=== PATIENT | male | born 1990 | race Caucasian/White ===

== ENCOUNTER 2022-06-23 04:47 | Observation (INO) ==
[2022-06-23] MEDS ORDERED: Melatonin 3 MG TABLET PO PRN ×2 (05:57→19:34)
[2022-06-23] MEDS ORDERED: Naloxone 0.4 MG/ML INJ IVP PRN ×2 (05:57→19:34)
[2022-06-23] MEDS ORDERED: Acetaminophen 325 MG TABLET PO PRN (06:00)
[2022-06-23] MEDS ORDERED: *HR* Dextrose 50 % in Water (Syg) 50 ML SYRINGE IVP PRN ×2 (06:13→19:34)
[2022-06-23] MEDS ORDERED: Dextrose Gel 15 GM/37.5 ML TUBE PO PRN ×4 (06:13→19:34)
[2022-06-23] MEDS ORDERED: D5% in Water 1,000 ML IVC PRN ×2 (06:13→19:34)
[2022-06-23] MEDS: Piperacillin/Tazobactam 3.375 GM in 0.9 % Sodium Chloride Mini Bag 100 ML IVPB SCH ×2 (07:55→15:47)
[2022-06-23 08:09] LABS: Basophils # 0.2 K/mcL (0.0-0.2); Eosinophils # 0.4 K/mcL (0.0-0.6); Eosinophils % 4.1 %; Hematocrit 44.5 % (37.5-50.1); Hemoglobin 15.6 g/dL (12.9-16.9); Immature Granulocytes % 0.2 % (0-4); Lymphocytes # 2.9 K/mcL (0.6-4.6); Lymphocytes % 34.2 %; Mean Corpuscular HGB Conc 35.1 g/dL (31.6-35.5); Mean Corpuscular Volume 88.5 fL (83.0-100.0); Mean Platelet Volume 9.6 fL (9.4-12.4); Monocytes # 0.6 K/mcL (0.0-1.3); Monocytes % 7.5 %; Neutrophils # 4.4 K/mcL (1.6-8.9); Platelet Count 211 K/mcL (140-400); Red Blood Count 5.03 M/mcL (4.19-5.50); Red Cell Distribution Width 13.1 % (11.5-14.5); White Blood Count 8.5 K/mcL (4.3-11.1)
[2022-06-23] MEDS ORDERED: Ibuprofen 400 MG TABLET PO PRN (08:15)
[2022-06-23 08:16] LABS: INR 1.1; Prothrombin Time 11.8 Seconds (9.4-12.1)
[2022-06-23 08:19] LABS: Activated Partial Thrombo Time 36.7 Seconds (26.0-36.0)
[2022-06-23 08:32] LABS: Alanine Aminotransferase 293 Units/L (7-52); Albumin 3.9 g/dL (3.5-5.7); Albumin/Globulin Ratio 1.9 (1.1-2.2); Alkaline Phosphatase 112 Units/L (34-104); Aspartate Amino Transferase 123 Units/L (13-39); BUN/Creatinine Ratio 13 (6-26); Bilirubin,Total 2.6 mg/dL (0.3-1.0); Blood Urea Nitrogen 11 mg/dL (6-20); Calcium 8.5 mg/dL (8.6-10.3); Carbon Dioxide 22 mEq/L (23-29); Chloride 109 mEq/L (98-107); Globulin 2.1 g/dL (2.4-3.5); Glucose 85 mg/dL (70-105); Osmolality,Calculated 287 (280-300); Potassium 3.8 mEq/L (3.5-5.1); Sodium 139 mEq/L (136-145)
[2022-06-23] MEDS: Ondansetron 4 MG/2 ML VIAL IVP PRN ×2 (08:36→19:22)
[2022-06-23] MEDS ORDERED: Nicotine 14 MG PATCH.TD24 TD SCH (09:00)
[2022-06-23] MEDS ORDERED: Lactobacillus 1 EACH CAP.SPRINK PO SCH (09:00)
[2022-06-23] MEDS ORDERED: Iopamidol - 300 50 ML VIAL ONE (10:51)
[2022-06-23] MEDS ORDERED: *HR* Rocuronium Bromide 50 MG/5 ML VIAL ONE ×2 (14:55→17:26)
[2022-06-23] MEDS ORDERED: Ondansetron 4 MG/2 ML VIAL ONE (14:55)
[2022-06-23] MEDS ORDERED: Lidocaine -MPF 2% 5 ML VIAL ONE (14:55)
[2022-06-23] MEDS ORDERED: Lidocaine HCL 4 ML Topical Solution (Laryng-O-Jet Kit Sterile Pak) TP ONE (14:55)
[2022-06-23] MEDS ORDERED: *HR* Propofol 200 MG/20 ML VIAL IVP ONE (14:55)
[2022-06-23] MEDS ORDERED: Sugammadex Sodium 200 MG/2 ML VIAL IV ONE (14:59)
[2022-06-23] MEDS ORDERED: *HR* HYDROcodone/Acet 5/325 mg TABLET PO PRN (15:15)
[2022-06-23] MEDS ORDERED: *HR* FentaNYL (PF) 100 MCG/2 ML VIAL ONE (15:49)
[2022-06-23] MEDS ORDERED: *HR* Midazolam HCl 2 MG/2 ML VIAL ONE (15:51)
[2022-06-23] MEDS ORDERED: *HR* HYDROMORPHONE 2 MG/ML VIAL ONE (17:13)
[2022-06-23] MEDS: *HR* HYDROmorphone PF 0.5 MG/0.5 ML SYRINGE IVP PRN ×4 (18:25→19:02)
[2022-06-23] MEDS ORDERED: Ondansetron 4 MG/2 ML VIAL IVP PRN (19:34)
[2022-06-23] MEDS ORDERED: *HR* OxyCODONE Immed Rel 15 MG TABLET PO PRN (19:34)
[2022-06-23] MEDS: Lactobacillus 1 EACH CAP.SPRINK PO SCH (22:48)
[2022-06-23] MEDS: Gabapentin 300 MG CAPSULE PO SCH (22:49)
[2022-06-24] MEDS: Ketorolac 30 MG/ML VIAL IVP SCH ×4 (01:17→18:21)
[2022-06-24] MEDS: Piperacillin/Tazobactam 3.375 GM in 0.9 % Sodium Chloride Mini Bag 100 ML IVPB SCH ×3 (01:18→16:46)
[2022-06-24 05:12] LABS: Basophils # 0.1 K/mcL (0.0-0.2); Basophils % 0.6 %; Eosinophils % 0.1 %; Hematocrit 43.2 % (37.5-50.1); Hemoglobin 14.8 g/dL (12.9-16.9); Immature Granulocytes % 0.3 % (0-4); Lymphocytes # 2.7 K/mcL (0.6-4.6); Lymphocytes % 15.6 %; Mean Corpuscular HGB Conc 34.3 g/dL (31.6-35.5); Mean Corpuscular Hemoglobin 30.8 pg (28.0-33.3); Mean Platelet Volume 9.7 fL (9.4-12.4); Monocytes # 0.7 K/mcL (0.0-1.3); Monocytes % 3.9 %; Platelet Count 215 K/mcL (140-400); Segmented Neutrophils % 79.5 %
[2022-06-24 05:13] LABS: Neutrophils # 13.8 K/mcL (1.6-8.9); White Blood Count 17.3 K/mcL (4.3-11.1)
[2022-06-24 05:32] LABS: Alanine Aminotransferase 298 Units/L (7-52); Albumin 3.8 g/dL (3.5-5.7); Albumin/Globulin Ratio 1.9 (1.1-2.2); Alkaline Phosphatase 112 Units/L (34-104); Aspartate Amino Transferase 122 Units/L (13-39); BUN/Creatinine Ratio 8 (6-26); Bilirubin,Total 2.4 mg/dL (0.3-1.0); Blood Urea Nitrogen 9 mg/dL (6-20); Calcium 8.8 mg/dL (8.6-10.3); Carbon Dioxide 29 mEq/L (23-29); Chloride 102 mEq/L (98-107); Glucose 109 mg/dL (70-105); Osmolality,Calculated 281 (280-300); Potassium 4.5 mEq/L (3.5-5.1); Sodium 136 mEq/L (136-145); Total Protein 5.8 g/dL (6.4-8.9)
[2022-06-24] MEDS: Nicotine 14 MG PATCH.TD24 TD SCH (09:13)
[2022-06-24] MEDS: Lactobacillus 1 EACH CAP.SPRINK PO SCH ×2 (09:13→19:53)
[2022-06-24] MEDS: Gabapentin 300 MG CAPSULE PO SCH ×3 (09:13→19:53)
[2022-06-24] MEDS ORDERED: Albuterol 2.5 MG/3 ML NEBULIZER IH PRN (12:45)
[2022-06-24] MEDS ORDERED: Ondansetron 4 MG/2 ML VIAL IVP PRN (12:45)
[2022-06-24] MEDS ORDERED: *HR* Meperidine 25 MG/ML SYRINGE IVP PRN (12:45)
[2022-06-24] MEDS ORDERED: *HR* FentaNYL (PF) 100 MCG/2 ML VIAL IVP PRN (12:45)
[2022-06-24] MEDS ORDERED: *HR* FentaNYL (PF) 100 MCG/2 ML VIAL ONE ×2 (13:06→14:25)
[2022-06-24] MEDS ORDERED: Ondansetron 4 MG/2 ML VIAL ONE (13:06)
[2022-06-24] MEDS ORDERED: *HR* Succinylcholine 200 MG/10 ML VIAL IVP ONE (13:06)
[2022-06-24] MEDS ORDERED: Lidocaine -MPF 2% 5 ML VIAL ONE (13:06)
[2022-06-24] MEDS ORDERED: *HR* Propofol 200 MG/20 ML VIAL IVP ONE (13:06)
[2022-06-24] MEDS ORDERED: Indomethacin 50 MG SUPP.RECT RC ONE (13:20)
[2022-06-25] MEDS: Piperacillin/Tazobactam 3.375 GM in 0.9 % Sodium Chloride Mini Bag 100 ML IVPB SCH ×2 (00:05→07:41)
[2022-06-25] MEDS: Ketorolac 30 MG/ML VIAL IVP SCH ×2 (00:06→05:44)
[2022-06-25 03:46] LABS: Albumin 3.6 g/dL (3.5-5.7); Albumin/Globulin Ratio 1.7 (1.1-2.2); Bilirubin,Direct 0.5 mg/dL (0.0-0.2); Bilirubin,Indirect 0.7 mg/dL (0.0-1.0); Bilirubin,Total 1.2 mg/dL (0.3-1.0); Globulin 2.1 g/dL (2.4-3.5); Total Protein 5.7 g/dL (6.4-8.9)
[2022-06-25 04:10] VITALS: O2SAT 97
[2022-06-25 04:51] VITALS: PULSE 65; TEMP 97.9
[2022-06-25 07:37] VITALS: BP 129/73
[2022-06-25] MEDS: Nicotine 14 MG PATCH.TD24 TD SCH (07:41)
[2022-06-25] MEDS: Lactobacillus 1 EACH CAP.SPRINK PO SCH (07:41)
[2022-06-25] MEDS: Gabapentin 300 MG CAPSULE PO SCH (07:41)
== END 2022-06-25 10:01 | disposition home or self-care (01) ==
LOC: 3ANU → SUATTDRO 04:47
PROVIDERS: ADMIT Internal Medicine; ATTEND Internal Medicine